=== PATIENT | male | born 1985 | race Caucasian/White ===

== ENCOUNTER → 2023-01-07 | Outpatient (CLI) | payer OTHER, SELFPAY ==
--- NOTE | 2023-01-07 | LES_PTH ---
PATIENT: ROBBIE CASTRO LOC: [facility] U#:[id number] AGE/SX: 37/M ROOM: RE01/07/[address]: Dr. Gila Ojeda DO : 1985 BED: DIS: 01/07/2023 SPEC #: [id number] RECD: 01/07/23 12:28 STATUS: GUS LUPE #: [id number] MILES: 01/07/23 00:[address]: Gila Ojeda DEPT: SURGICAL PATHOLOGY RECD BY: Vadim Escoto Tissues: Skin of leg, NOS Procedures: Special Stain Group II Surgery Specimen Level IV GMS Stain (control) HEADER OPERATION: 3 mm punch biopsy left lateral yanes PRE-OP DIAGNOSIS: Itchy rash, spreading, ? psoriasis TISSUE SUBMITTED: Left lateral yanes lesion MICROSCOPIC DIAGNOSIS Left lateral yanes lesion, punch biopsy: Dermal and interface chronic inflammation and focal changes consistent with folliculitis. Acanthosis and hyperkeratosis. Negative for malignancy. See comment. SJ:giulia 01/08/2023 COMMENT Special stain for fungi is negative for organisms; matched control is appropriate. Changes consistent with psoriasis are not seen. Clinical correlation and appropriate follow up are necessary. Case has been reviewed in consultation with Dr. Downs who concurs with the above diagnosis. IDC:AM MICROSCOPIC DESCRIPTION Slides are reviewed. GROSS DESCRIPTION Received is one container labeled with the patient's name and not further designated. The specimen consists of a punch biopsy of jeffries-white skin measuring 0.2 cm in diameter and 0.2 cm in length. The entire specimen is submitted in one cassette. / SHANIQUE:giulia 01/07/2023 TC:3 CPT:27348, 04210
== END | disposition home or self-care (01) ==
LOC: BFHLAB 09:26 → LABSPEC 09:28
PROVIDERS: PCP Family Medicine; Referring Provider Family Medicine; Visit Provider Family Medicine
DX: L40.0 Psoriasis vulgaris (principal)
CPT/HCPCS: 88305; 88313

== ENCOUNTER → 2024-07-05 | Outpatient (CLI) | payer OTHER, SELFPAY ==
--- NOTE | 2024-07-05 | VAS_PTH ---
PATIENT: ROBBIE CASTRO LOC: [facility] U#:[id number] AGE/SX: 39/M ROOM: RE07/05/[address]: Dr. Sheldon Vanegas MD : 1985 BED: DIS: 07/05/2024 SPEC #: [id number] RECD: 07/05/24 10:37 STATUS: GUS REJulienne #: [id number] MILES: 07/05/24 00:[address]: Sheldon Vanegas DEPT: SURGICAL PATHOLOGY RECD BY: Ernie Rosado ENTERED: 07/05/24 12:02 SP TYPE: VAS OTHR DR: Dr. Gila Ojeda, DO Tissues: A - Vas deferens, NOS B - Vas deferens, NOS Procedures: Surgery Specimen Level II HEADER OPERATION: Bilateral partial vasectomy PRE-OP DIAGNOSIS: Sterilization TISSUE SUBMITTED: A- Right vas deferens, B- Left vas deferens MICROSCOPIC DIAGNOSIS A. Right vas deferens, partial vasectomy: Completely transected segment of vas deferens, no pathologic diagnosis. B. Left vas deferens, partial vasectomy: Completely transected segment of vas deferens, no pathologic diagnosis. SJ: 07/06/2024 MICROSCOPIC DESCRIPTION Slides are reviewed. GROSS DESCRIPTION A - Received is one container designated Right vas deferens. The specimen consists of a tubular segment o white tissue measuring 0.6 cm in length and 0.1 cm in diameter. The specimen is sectioned and submitted entirely in one cassette. B - Received is one container designated Left vas deferens. The specimen consists of a tubular segment of white tissue measuring 0.6 cm in length and 0.1 cm in diameter. The specimen is sectioned and submitted entirely in one cassette. / MJ: 07/05/2024 TC:4 [facility]: [id number] x2
== END | disposition home or self-care (01) ==
LOC: LABSPEC 10:49
PROVIDERS: PCP Family Medicine; Referring Provider Surgery; Visit Provider Surgery
DX: Z30.2 Encounter for sterilization (principal)
CPT/HCPCS: 88302

== ENCOUNTER → 2024-08-27 | Outpatient (CLI) | payer OTHER, SELFPAY ==
[2024-08-27 09:46] LABS: Cytology, Semen SEE PATHOLOGY REPORT
--- NOTE | 2024-08-27 09:46 | CYSPIN_PTH ---
PATIENT: ROBBIE CASTRO LOC: [facility] U#:[id number] AGE/SX: 39/M ROOM: RE08/27/[address]: Dr. Sheldon Vanegas MD : 1985 BED: DIS: 08/27/2024 SPEC #: [id number] RECD: 08/27/24 11:43 STATUS: GUS REJulienne #: [id number] MILES: 08/27/24 09:[address]: Sheldon Vanegas DEPT: CYTOLOGY RECD BY: Evie Aaron ENTERED: 08/27/24 11:43 SP TYPE: CYSPIN FL OTHR DR: Dr. Gila Ojeda, DO Tissues: Cytologic material, NOS Procedures: Pap Stain (control) Special Stain Group II Cytospin Fluid HEADER OPERATION: Post vasectomy PRE-OP DIAGNOSIS: Post vasectomy status TISSUE SUBMITTED: Seminal fluid for cytology DIAGNOSIS CYTOLOGY Seminal fluid for cytology (cytospins): Spermatozoa are not seen. SJ.mr 08/27/2024 CYTOLOGY STUDY Slides are reviewed. CYTOLOGY GROSS Received is 4 ml of cloudy thick fluid labeled with the patient's name and and designated per the requisition as Seminal fluid. Submitted for cytology preparation. Mr 08/27/2024 TC:5 CPT: 12923
== END | disposition home or self-care (01) ==
PROVIDERS: PCP Family Medicine; Referring Provider Surgery; Visit Provider Surgery
DX: Z30.2 Encounter for sterilization (principal)
CPT/HCPCS: 36415; 88108; 88313

== ENCOUNTER → 2024-09-06 | Outpatient (CLI) | payer OTHER, SELFPAY ==
[2024-09-06 11:26] LABS: Cytology, Semen SEE PATHOLOGY REPORT
--- NOTE | 2024-09-06 11:26 | CYSPIN_PTH ---
PATIENT: ROBBIE CASTRO LOC: [facility] U#:[id number] AGE/SX: 39/M ROOM: RE09/06/[address]: Dr. Sheldon Vanegas MD : 1985 BED: DIS: 09/06/2024 SPEC #: [id number] RECD: 09/06/24 11:42 STATUS: GUS REQ #: [id number] MILES: 09/06/24 11:[address]: Sheldon Vanegas DEPT: CYTOLOGY RECD BY: Evie Aaron ENTERED: 09/06/24 11:43 SP TYPE: CYSPIN FL OTHR DR: Dr. Gila Ojeda, DO Tissues: Cytologic material, NOS Procedures: Pap Stain (control) Special Stain Group II Cytospin Fluid HEADER OPERATION: Post vasectomy PRE-OP DIAGNOSIS: Post vasectomy status TISSUE SUBMITTED: Seminal fluid for cytology DIAGNOSIS CYTOLOGY Seminal fluid for cytology (cytospins): Spermatozoa are not identified. SJ.mr 09/06/2024 CYTOLOGY STUDY Slides are reviewed. CYTOLOGY GROSS Received is 3 ml of tannish-opaque cloudy fluid labeled with the patient's name and and designated per the requisition as Seminal fluid. Submitted for cytology. Mr 09/06/2024 TC:5 CPT: 22667
== END | disposition home or self-care (01) ==
LOC: LABSPEC 11:21
PROVIDERS: PCP Family Medicine; Referring Provider Surgery; Visit Provider Surgery
DX: Z30.2 Encounter for sterilization (principal)
CPT/HCPCS: 88108; 88313